=== PATIENT | female | born 1995 | race Caucasian/White ===

== ENCOUNTER 2017-07-25 19:50 | Emergency (ER) | payer OTHER ==
[~2017-07-25] VITALS: Ht 170.2 cm; Wt 70.0 kg
[~2017-07-25 19:50] MED LIST: CLIN150 PO; HYDR10SO PO; THERH PO; TRIA0.25 PO; TYLE500T PO
[2017-07-25 20:40] VITALS: BP 140/78; PULSE 87; RESP 20; TEMP 98; O2SAT 98
[2017-07-25] MEDS ORDERED: BIRTH CONTROL (20:42)
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
== END 2017-07-25 22:09 | disposition home or self-care (01) ==
LOC: NEPD 19:50
DX: S16.1XXA Strain of muscle, fascia and tendon at neck level, initial encounter (principal); V49.50XA Passenger injured in collision with unspecified motor vehicles in traffic accident, initial encounter
CPT/HCPCS: 72040; 99283